=== PATIENT | male | born 1950 | race Caucasian/White ===

== ENCOUNTER 2017-09-28 01:34 | Inpatient (IN) | payer OTHER, MEDICARE ==
[~2017-09-28] VITALS: Ht 180.3 cm; Wt 76.2 kg
[2017-09-28 02:57] LABS: Basophils # (auto) 0.1 uL; Eosinophils # (auto) 0.3 uL; Monocytes # (auto) 0.5 uL
[2017-09-28 02:59] LABS: Basophils % (auto) 0.6 % (0.0-2.0); Eosinophils % (auto) 2.9 % (0.0-7.0); Hematocrit 39.2 % (41.0-53.0); Hemoglobin 12.7 g/dL (13.5-17.5); Lymphocytes # (auto) 2.3 uL; Lymphocytes % (auto) 25.6 % (10.0-50.0); Mean Corpuscular Hemoglobin 25.6 pg (28.0-32.0); Mean Corpuscular Hgb Conc. 32.4 g/dL (32.0-36.0); Mean Corpuscular Volume 78.9 fL (80.0-100.0); Monocytes % (auto) 5.2 % (0.0-12.0); Neutrophils % (auto) 65.7 % (37.0-80.0); Nucleated Red Blood Cells % 0.1 %; Platelet Count (auto) 268 10^3/uL (140-450); Red Blood Cells 4.97 10^6/uL (4.5-5.90); Red Cell Distribution Width 16.5 % (11.8-14.3); White Blood Cell 9.1 10^3/uL (4.4-10.8)
[2017-09-28 03:07] LABS: INR 0.95 (0.9-1.15); Partial Thromboplastin Time 23.4 sec (22.64-33.71); Prothrombin Time 10.4 sec (9.37-12.3)
[2017-09-28 03:10] LABS: Alanine Aminotransferase 15 U/L (16-61); Albumin 2.9 g/dL (3.4-5.0); Anion Gap 10 (5-15); Aspartate Aminotransferase 10 U/L (15-37); Blood Alcohol < 3.0 mg/dL (0-5); Blood Urea Nitrogen 22 mg/dL (7-18); Calcium 8.7 mg/dL (8.5-10.1); Carbon Dioxide 23 mmol/L (21-32); Chloride 111 mmol/L (98-107); GFR African American 96 mL/min; GFR Non-African American 79 mL/min; Glucose 145 mg/dL (74-106); Magnesium 2.3 mg/dL (1.6-2.6); Potassium 3.7 mmol/L (3.5-5.1); Sodium 144 mmol/L (136-145)
[2017-09-28 03:15] LABS: Alkaline Phosphatase 84 U/L (45-117); Bilirubin, Total 0.2 mg/dL (0.2-1.0); Total Protein 6.3 g/dL (6.4-8.2)
[2017-09-28 04:25] LABS: Lactic Acid w/Reflex 2.4 mmol/L (0.4-2.0)
[2017-09-28] MEDS ORDERED: ASPI-378 PO (06:13)
[2017-09-28] MEDS ORDERED: TEMA30CA PO (06:13)
[2017-09-28] MEDS ORDERED: METO25TA5 PO (06:13)
[2017-09-28] MEDS ORDERED: CLOP75TA28 PO (06:13)
[2017-09-28] MEDS ORDERED: GEMF600T3 PO (06:13)
[2017-09-28] MEDS ORDERED: METF-489 PO (06:13)
[2017-09-28] MEDS ORDERED: cefTRIAXone 1GM/10ml IVPUSH 10 ML IV ONE (10:15)
[2017-09-28] MEDS ORDERED: DEXTROSE (50%) 50ML SYRG IV PRN (10:15)
[2017-09-28] MEDS ORDERED: LORazepam 2MG/ML-1ML VIAL IV PRN (10:15)
[2017-09-28] MEDS ORDERED: cloNIDine HCL 0.1 MG TAB PO PRN (10:15)
[2017-09-28] MEDS ORDERED: VANCOMYCIN PER PHARMACY 0 MG IV SCH (10:15)
[2017-09-28] MEDS ORDERED: IOHEXOL 350 MG/ML 100ML IJ ONE (10:21)
[2017-09-28] MEDS ORDERED: MORPHINE SULFATE 8mg/ml INJ SDV IV PRN ×2 (10:30)
[2017-09-28] MEDS ORDERED: ONDANSETRON HCL 4 MG/2 ML VIAL IV PRN (10:30)
[2017-09-28] MEDS ORDERED: ACETAMINOPHEN 325 MG TAB PO PRN (10:30)
[2017-09-28] MEDS ORDERED: TEMAZEPAM 15 MG CAP PO PRN (10:30)
[2017-09-28] MEDS ORDERED: NITROGLYCERIN 0.4 MG SL TAB SL PRN (10:30)
[2017-09-28] MEDS ORDERED: DOCUSATE SOD 100 MG CAP PO PRN (10:30)
[2017-09-28] MEDS ORDERED: ASPirin-EC 81 mg tab PO ONE (10:30)
[2017-09-28] MEDS: InsuLIN REG 1unit/0.01ml Soln (100units/ml) SC SCH ×3 (11:12→21:49)
[2017-09-28] MEDS: ACCU-CHEK COMFORT CURVE STRIP VI SCH ×3 (11:12→21:49)
[2017-09-28] MEDS: SODIUM CHLORIDE 0.9% 1,000 ML IV SCH (11:16)
[2017-09-28] MEDS: VANCOMYCIN 1GM/250ML 250 ML IV SCH (11:17)
[2017-09-28] MEDS: ENOXAPARIN SOD 40 MG/0.4 ML SYRINGE SC SCH (11:17)
[2017-09-28] MEDS: Boost Glucose Control 8 Ounces PO SCH ×2 (11:17→19:21)
[2017-09-28 19:01] LABS: Alcohol, Urine < 3.0 mg/dL (0-5); Amphetamine Screen, Urine NEGATIVE (NEGATIVE); Barbiturate Scree,Urine NEGATIVE (NEGATIVE); Benzodiazephine Screen, Urine NEGATIVE (NEGATIVE); Cannabinoid Screen, Urine NEGATIVE (NEGATIVE); Cocaine Screen, Urine NEGATIVE (NEGATIVE); Opiate Scree,Urine NEGATIVE (NEGATIVE); Phencyclidine Screen, Urine NEGATIVE (NEGATIVE)
[2017-09-28 19:07] LABS: Urine Bacteria NONE SEEN /hpf (None Seen); Urine Blood 1+ /uL (Negative); Urine WBC 2 /hpf (0 - 3)
[2017-09-28 19:16] LABS: Urine Specific Gravity > 1.050 (1.001-1.035)
[2017-09-28 22:00] VITALS: BP_SYST 162; BP_DIAS 83; BP_DIAS 88
[2017-09-28] MEDS: FAMOTIDINE 20 MG TAB PO SCH (23:34)
[2017-09-28] MEDS: ATORVASTATIN 20 MG TAB PO SCH (23:34)
[2017-09-29] MEDS: VANCOMYCIN 1GM/250ML 250 ML IV SCH ×3 (00:57→22:34)
[2017-09-29] MEDS: SODIUM CHLORIDE 0.9% 1,000 ML IV SCH ×2 (02:56→22:35)
[2017-09-29 05:08] VITALS: BP 155/88
[2017-09-29] MEDS: InsuLIN REG 1unit/0.01ml Soln (100units/ml) SC SCH ×4 (06:59→22:00)
[2017-09-29] MEDS: ACCU-CHEK COMFORT CURVE STRIP VI SCH ×4 (07:00→22:35)
[2017-09-29 07:16] LABS: Basophils # (auto) 0.1 uL; Basophils % (auto) 0.9 % (0.0-2.0); Eosinophils # (auto) 0.2 uL; Eosinophils % (auto) 2.5 % (0.0-7.0); Hematocrit 35.8 % (41.0-53.0); Hemoglobin 11.9 g/dL (13.5-17.5); Lymphocytes # (auto) 1.9 uL; Lymphocytes % (auto) 27.7 % (10.0-50.0); Mean Corpuscular Hemoglobin 25.8 pg (28.0-32.0); Mean Corpuscular Hgb Conc. 33.1 g/dL (32.0-36.0); Monocytes # (auto) 0.4 uL; Monocytes % (auto) 6.1 % (0.0-12.0); Neutrophils # (auto) 4.3 uL; Neutrophils % (auto) 62.8 % (37.0-80.0); Nucleated Red Blood Cells % 0.1 %; Platelet Count (auto) 223 10^3/uL (140-450); Red Blood Cells 4.59 10^6/uL (4.5-5.90); Red Cell Distribution Width 16.2 % (11.8-14.3); White Blood Cell 6.8 10^3/uL (4.4-10.8)
[2017-09-29 07:39] LABS: Albumin 2.8 g/dL (3.4-5.0); BUN/Creatinine Ratio 17.9; Bilirubin, Total 0.3 mg/dL (0.2-1.0); Calcium 8.6 mg/dL (8.5-10.1); Potassium 3.7 mmol/L (3.5-5.1); Total Protein 6.1 g/dL (6.4-8.2)
[2017-09-29 09:00] VITALS: BP 159/83
[2017-09-29] MEDS: cefTRIAXone 1GM/10ml IVPUSH 10 ML IV SCH (09:13)
[2017-09-29] MEDS: Boost Glucose Control 8 Ounces PO SCH ×3 (09:14→18:03)
[2017-09-29] MEDS ORDERED: ASPirin-EC 81 mg tab PO SCH (10:00)
[2017-09-29] MEDS: FAMOTIDINE 20 MG TAB PO SCH ×2 (11:15→22:34)
[2017-09-29] MEDS: ENOXAPARIN SOD 40 MG/0.4 ML SYRINGE SC SCH (11:15)
[2017-09-29] MEDS: MULTIPLE VITAMIN TAB PO SCH (11:15)
[2017-09-29 13:00] VITALS: BP 150/93
[2017-09-29] MEDS: APIXABAN 5 MG TAB PO SCH ×2 (15:53→22:00)
[2017-09-29 17:00] VITALS: BP 155/59
[2017-09-29] MEDS: ATORVASTATIN 20 MG TAB PO SCH (22:34)
[2017-09-29] MEDS: HYDROcodone-ACET 5/325MG TAB PO PRN (22:39)
[2017-09-29 23:54] VITALS: BP 147/66
[2017-09-30 05:50] LABS: Basophils # (auto) 0 uL; Basophils % (auto) 0.6 % (0.0-2.0); Eosinophils # (auto) 0.2 uL; Hematocrit 36.3 % (41.0-53.0); Lymphocytes # (auto) 1.9 uL; Monocytes # (auto) 0.4 uL; Neutrophils # (auto) 4.2 uL; White Blood Cell 6.7 10^3/uL (4.4-10.8)
[2017-09-30 05:51] LABS: Eosinophils % (auto) 2.9 % (0.0-7.0); Lymphocytes % (auto) 28.2 % (10.0-50.0); Mean Corpuscular Hemoglobin 25.6 pg (28.0-32.0); Mean Corpuscular Volume 77.4 fL (80.0-100.0); Monocytes % (auto) 6.3 % (0.0-12.0); Platelet Count (auto) 223 10^3/uL (140-450); Red Blood Cells 4.69 10^6/uL (4.5-5.90); Red Cell Distribution Width 15.9 % (11.8-14.3)
[2017-09-30 06:06] VITALS: BP 178/89
[2017-09-30 06:40] LABS: Albumin 2.8 g/dL (3.4-5.0); BUN/Creatinine Ratio 18.8; Bilirubin, Total 0.3 mg/dL (0.2-1.0); Calcium 8.9 mg/dL (8.5-10.1); Potassium 3.7 mmol/L (3.5-5.1); Total Protein 6.2 g/dL (6.4-8.2)
[2017-09-30] MEDS: InsuLIN REG 1unit/0.01ml Soln (100units/ml) SC SCH ×4 (06:54→22:15)
[2017-09-30] MEDS: ACCU-CHEK COMFORT CURVE STRIP VI SCH ×4 (06:55→22:00)
[2017-09-30 09:00] VITALS: BP 158/85
[2017-09-30] MEDS: Boost Glucose Control 8 Ounces PO SCH ×3 (09:35→17:40)
[2017-09-30] MEDS: APIXABAN 5 MG TAB PO SCH ×2 (09:36→22:14)
[2017-09-30] MEDS: cefTRIAXone 1GM/10ml IVPUSH 10 ML IV SCH (09:36)
[2017-09-30] MEDS: MULTIPLE VITAMIN TAB PO SCH (09:36)
[2017-09-30] MEDS: FAMOTIDINE 20 MG TAB PO SCH ×2 (09:37→22:14)
[2017-09-30] MEDS: VANCOMYCIN 1GM/250ML 250 ML IV SCH ×2 (11:44→23:00)
[2017-09-30] MEDS: SODIUM CHLORIDE 0.9% 1,000 ML IV SCH (12:10)
[2017-09-30 13:00] VITALS: BP 161/87
[2017-09-30 17:00] VITALS: BP 170/98
[2017-09-30] MEDS ORDERED: LORazepam 2MG/ML-1ML VIAL IV PRN (20:30)
[2017-09-30 22:00] VITALS: BP 152/83
[2017-09-30] MEDS: ATORVASTATIN 20 MG TAB PO SCH (22:14)
[2017-10-01] VITALS (7 sets, daily range): BP systolic 142–159; BP diastolic 69–96
[2017-10-01] MEDS: SODIUM CHLORIDE 0.9% 1,000 ML IV SCH ×2 (05:20→22:01)
[2017-10-01 06:05] LABS: Basophils # (auto) 0.1 uL; Basophils % (auto) 0.9 % (0.0-2.0); Eosinophils # (auto) 0.3 uL; Eosinophils % (auto) 3.9 % (0.0-7.0); Hematocrit 38.2 % (41.0-53.0); Hemoglobin 12.5 g/dL (13.5-17.5); Lymphocytes # (auto) 1.5 uL; Lymphocytes % (auto) 23.1 % (10.0-50.0); Mean Corpuscular Hemoglobin 25.6 pg (28.0-32.0); Mean Corpuscular Hgb Conc. 32.7 g/dL (32.0-36.0); Mean Corpuscular Volume 78.3 fL (80.0-100.0); Monocytes # (auto) 0.3 uL; Monocytes % (auto) 5.3 % (0.0-12.0); Neutrophils # (auto) 4.3 uL; Neutrophils % (auto) 66.8 % (37.0-80.0); Nucleated Red Blood Cells % 0.1 %; Platelet Count (auto) 250 10^3/uL (140-450); Red Blood Cells 4.88 10^6/uL (4.5-5.90); Red Cell Distribution Width 16.2 % (11.8-14.3); White Blood Cell 6.5 10^3/uL (4.4-10.8)
[2017-10-01] MEDS: InsuLIN REG 1unit/0.01ml Soln (100units/ml) SC SCH ×4 (06:32→22:00)
[2017-10-01] MEDS: ACCU-CHEK COMFORT CURVE STRIP VI SCH ×4 (06:33→22:01)
[2017-10-01 06:41] LABS: BUN/Creatinine Ratio 19.8; Calcium 9.1 mg/dL (8.5-10.1); Potassium 3.8 mmol/L (3.5-5.1)
[2017-10-01] MEDS: Boost Glucose Control 8 Ounces PO SCH ×3 (08:53→17:40)
[2017-10-01] MEDS: FAMOTIDINE 20 MG TAB PO SCH ×2 (10:01→22:00)
[2017-10-01] MEDS: APIXABAN 5 MG TAB PO SCH ×2 (10:01→22:01)
[2017-10-01] MEDS: MULTIPLE VITAMIN TAB PO SCH (10:01)
[2017-10-01] MEDS: cefTRIAXone 1GM/10ml IVPUSH 10 ML IV SCH (10:02)
[2017-10-01 11:56] LABS: Folate (Folic Acid) 15.37 ng/mL (5.38-24)
[2017-10-01] MEDS: ATORVASTATIN 20 MG TAB PO SCH (22:01)
[2017-10-01] MEDS: HYDROcodone-ACET 5/325MG TAB PO PRN (22:03)
[2017-10-02 05:30] VITALS: BP 177/77
[2017-10-02] MEDS: HYDROcodone-ACET 5/325MG TAB PO PRN (05:39)
[2017-10-02 06:07] LABS: Eosinophils # (auto) 0.3 uL; Lymphocytes # (auto) 1.7 uL; Neutrophils # (auto) 3.2 uL; White Blood Cell 5.6 10^3/uL (4.4-10.8)
[2017-10-02 06:10] LABS: Basophils # (auto) 0.1 uL; Basophils % (auto) 1.2 % (0.0-2.0); Hematocrit 39.1 % (41.0-53.0); Hemoglobin 12.8 g/dL (13.5-17.5); Lymphocytes % (auto) 30.7 % (10.0-50.0); Mean Corpuscular Hemoglobin 25.6 pg (28.0-32.0); Mean Corpuscular Hgb Conc. 32.7 g/dL (32.0-36.0); Mean Corpuscular Volume 78.3 fL (80.0-100.0); Monocytes # (auto) 0.3 uL; Monocytes % (auto) 6.2 % (0.0-12.0); Neutrophils % (auto) 56.9 % (37.0-80.0); Nucleated Red Blood Cells % 0.2 %; Platelet Count (auto) 263 10^3/uL (140-450); Red Cell Distribution Width 16.3 % (11.8-14.3)
[2017-10-02 06:25] LABS: Potassium 3.9 mmol/L (3.5-5.1)
[2017-10-02 06:34] LABS: BUN/Creatinine Ratio 19.8; Bilirubin, Total 0.4 mg/dL (0.2-1.0); Calcium 9.4 mg/dL (8.5-10.1); Total Protein 6.4 g/dL (6.4-8.2)
[2017-10-02] MEDS: ACCU-CHEK COMFORT CURVE STRIP VI SCH ×2 (06:52→11:30)
[2017-10-02] MEDS: InsuLIN REG 1unit/0.01ml Soln (100units/ml) SC SCH ×2 (06:52→11:30)
[2017-10-02 08:00] VITALS: BP 109/61
[2017-10-02] MEDS: Boost Glucose Control 8 Ounces PO SCH ×2 (08:12→12:40)
[2017-10-02 09:00] VITALS: BP 109/61
[2017-10-02] MEDS: APIXABAN 5 MG TAB PO SCH (09:21)
[2017-10-02] MEDS: FAMOTIDINE 20 MG TAB PO SCH (09:21)
[2017-10-02] MEDS: MULTIPLE VITAMIN TAB PO SCH (09:21)
[2017-10-02 11:35] VITALS: BP 109/61
[2017-10-06] MEDS ORDERED: APIXABAN 5 MG TAB PO SCH (22:00)
== END 2017-10-02 13:00 | disposition home or self-care (01) | DRG 871 ==
LOC: ER 01:34 → WEST WING 01:35 → TELE-WESTW 09-29 23:12
PROVIDERS: ADMIT Internal Medicine; ATTEND Internal Medicine
DX: A41.9 Sepsis, unspecified organism (principal); G92 Toxic encephalopathy; E44.0 Moderate protein-calorie malnutrition; E11.21 Type 2 diabetes mellitus with diabetic nephropathy; E11.52 Type 2 diabetes mellitus with diabetic peripheral angiopathy with gangrene; E11.42 Type 2 diabetes mellitus with diabetic polyneuropathy; F17.200 Nicotine dependence, unspecified, uncomplicated; D50.9 Iron deficiency anemia, unspecified; N39.0 Urinary tract infection, site not specified; D63.8 Anemia in other chronic diseases classified elsewhere; E86.0 Dehydration; I10 Essential (primary) hypertension; G40.909 Epilepsy, unspecified, not intractable, without status epilepticus; F03.90 Unspecified dementia, unspecified severity, without behavioral disturbance, psychotic disturbance, mood disturbance, and anxiety; N18.2 Chronic kidney disease, stage 2 (mild); E11.22 Type 2 diabetes mellitus with diabetic chronic kidney disease; I51.7 Cardiomegaly; Z79.01 Long term (current) use of anticoagulants; Z89.432 Acquired absence of left foot
CPT/HCPCS: 36415; 70450; 70551; 71045; 71275; 80048; 80053; 80202; 80307; 80320; 81001; 82607; 82746; 82962; 83036; 83605; 83735; 83880; 84443; 84484; 85025; 85379; 85610; 85730; 87040; 87086; 93005; 93306; 93886; 93970; 94761; 95819; 96372; 96374; 97116; 97163; J1815

== ENCOUNTER 2019-07-31 09:45 | Inpatient (IN) | payer MEDICARE, OTHER ==
[~2019-07-31] VITALS: Ht 180.3 cm; Wt 73.0 kg
[~2019-07-31 09:45] MED LIST: ASPI-378 PO; CLOP75TA28 PO; GEMF600T7 PO; METF-489 PO; METO25TA5 PO; TEMA30CA PO
[2019-07-31] MEDS ORDERED: PIPERACILLIN-TAZOB 3.375GM 100 ML IV ONE (10:00)
[2019-07-31 10:21] LABS: Hemoglobin 15.1 g/dL (13.5-17.5); White Blood Cell 16.2 10^3/uL (4.4-10.8)
[2019-07-31 10:23] LABS: Hematocrit 46.8 % (41.0-53.0); Mean Corpuscular Hemoglobin 26.7 pg (28.0-32.0); Mean Corpuscular Hgb Conc. 32.3 g/dL (32.0-36.0); Mean Corpuscular Volume 82.6 fL (80.0-100.0); Platelet Count (auto) 357 10^3/uL (140-450); Red Blood Cells 5.67 10^6/uL (4.5-5.90); Red Cell Distribution Width 16.8 % (11.8-14.3)
[2019-07-31 10:28] LABS: Band Neutrophils % (manual) 0; Basophils % (manual) 0 (0.0-2.0); Blast Cells 0; Eosinophils % (manual) 0 (0-7); Metamyelocytes % 0; Myelocytes % 0; Promyelocytes % 0; Reactive Lymphocytes 0
[2019-07-31 10:36] LABS: INR 1.06 (0.9-1.15); Partial Thromboplastin Time 20.7 sec (23.64-32.05)
[2019-07-31 10:41] LABS: Albumin 3.4 g/dL (3.4-5.0); Calcium 9.6 mg/dL (8.5-10.1)
[2019-07-31 10:46] LABS: BUN/Creatinine Ratio 27.1; Bilirubin, Total 0.5 mg/dL (0.2-1.0); Total Protein 7.5 g/dL (6.4-8.2)
[2019-07-31 11:12] LABS: Lactic Acid w/Reflex 3.3 mmol/L (0.4-2.0)
[2019-07-31] MEDS ORDERED: AZITHROMYCIN 500MG/ 250ML 250 ML IV ONE (11:30)
[2019-07-31 11:33] LABS: Lymphocytes % (manual) 15 (10.0-50.0); Monocytes % (manual) 7 (0-12)
[2019-07-31] MEDS ORDERED: DEXTROSE (50%) 50ML SYRG IV PRN (13:00)
[2019-07-31] MEDS ORDERED: NITROGLYCERIN 0.4 MG SL TAB SL PRN (13:00)
[2019-07-31] MEDS ORDERED: MORPHINE SULF INJ 2 MG/ML SYRINGE 1ML IV PRN ×2 (13:00)
[2019-07-31] MEDS ORDERED: ACETAMINOPHEN 500 MG TAB PO PRN (13:00)
[2019-07-31] MEDS ORDERED: ONDANSETRON HCL 4 MG/2 ML VIAL IV PRN (13:00)
[2019-07-31] MEDS ORDERED: SODIUM CHLORIDE 0.9% 2,000 ML IV ONE (13:00)
[2019-07-31] MEDS ORDERED: SODIUM CHLORIDE 0.9% 1,000 ML IV SCH (13:00)
[2019-07-31] MEDS: METOPROLOL TARTRATE 25 MG TAB PO SCH ×2 (14:41→22:37)
[2019-07-31] MEDS: cefTRIAXone 1GM/50ML D5W 50 ML IV SCH (15:18)
[2019-07-31] MEDS: SODIUM CHLORIDE 0.9% 1,000 ML IV SCH (15:22)
[2019-07-31] MEDS: CLINDAMYCIN 300MG IV 50 ML IV SCH ×2 (16:57→22:36)
[2019-07-31] MEDS: ACCU-CHEK COMFORT CURVE STRIP VI SCH ×2 (17:47→22:00)
[2019-07-31] MEDS: InsuLIN REG 1unit/0.01ml Soln (100units/ml) SC SCH ×2 (17:58→22:00)
[2019-07-31] MEDS: ALBUTEROL SULF 2.5 MG/0.5ML(0.5%) NEB SOLN NEB SCH (19:50)
[2019-07-31] MEDS: IPRATROPIUM BROM 0.5 MG/2.5ML INH SOL NEB SCH (19:51)
[2019-07-31 19:56] VITALS: BP 129/78
[2019-07-31 20:00] VITALS: BP 157/93
[2019-07-31 22:00] VITALS: BP 157/93
[2019-07-31] MEDS: TERAZOSIN HCL 1 MG CAP PO SCH (22:36)
[2019-08-01] LABS: Urine Amorphous Crystal FEW /hpf (None Seen); Urine Bacteria NONE SEEN /hpf (None Seen); Urine Blood Negative /uL (Negative); Urine WBC 3 /hpf (0 - 3)
[2019-08-01] MEDS ORDERED: TEMAZEPAM 15 MG CAP PO ONE (00:45)
[2019-08-01] MEDS: SODIUM CHLORIDE 0.9% 1,000 ML IV SCH (00:56)
[2019-08-01 05:00] VITALS: BP 145/77
[2019-08-01] MEDS: CLINDAMYCIN 300MG IV 50 ML IV SCH (05:28)
[2019-08-01 06:02] LABS: Basophils # (auto) 0.1 uL; Basophils % (auto) 0.9 % (0.0-2.0); Eosinophils # (auto) 0 uL; Eosinophils % (auto) 0.3 % (0.0-7.0); Hematocrit 40.7 % (41.0-53.0); Hemoglobin 13.4 g/dL (13.5-17.5); Lymphocytes # (auto) 1.7 uL; Lymphocytes % (auto) 15.2 % (10.0-50.0); Mean Corpuscular Hemoglobin 27.3 pg (28.0-32.0); Mean Corpuscular Volume 82.8 fL (80.0-100.0); Monocytes # (auto) 0.5 uL; Monocytes % (auto) 4.9 % (0.0-12.0); Neutrophils # (auto) 8.6 uL; Neutrophils % (auto) 78.7 % (37.0-80.0); Platelet Count (auto) 225 10^3/uL (140-450); Red Blood Cells 4.92 10^6/uL (4.5-5.90); Red Cell Distribution Width 16.4 % (11.8-14.3); White Blood Cell 10.9 10^3/uL (4.4-10.8)
[2019-08-01] MEDS: IPRATROPIUM BROM 0.5 MG/2.5ML INH SOL NEB SCH ×3 (06:10→19:28)
[2019-08-01] MEDS: ALBUTEROL SULF 2.5 MG/0.5ML(0.5%) NEB SOLN NEB SCH ×3 (06:10→19:28)
[2019-08-01] MEDS: ACCU-CHEK COMFORT CURVE STRIP VI SCH ×4 (06:18→22:07)
[2019-08-01] MEDS: InsuLIN REG 1unit/0.01ml Soln (100units/ml) SC SCH ×4 (06:19→22:08)
[2019-08-01 06:22] LABS: BUN/Creatinine Ratio 34.7; Calcium 8.3 mg/dL (8.5-10.1); Potassium 4.2 mmol/L (3.5-5.1)
[2019-08-01 08:00] VITALS: BP 136/77
[2019-08-01 09:00] VITALS: BP 136/77
[2019-08-01] MEDS: cefTRIAXone 1GM/50ML D5W 50 ML IV SCH (09:44)
[2019-08-01] MEDS: METOPROLOL TARTRATE 25 MG TAB PO SCH ×2 (09:49→22:06)
[2019-08-01] MEDS: FAMOTIDINE 20 MG TAB PO SCH (09:49)
[2019-08-01] MEDS ORDERED: SOD CHL 0.45% 1,000 ML IV SCH (10:00)
[2019-08-01] MEDS: levoFLOXacin 750MG 150 ML IV SCH (12:36)
[2019-08-01] MEDS: D5W/SOD CHL 0.45% 1,000 ML IV SCH ×2 (12:39→23:30)
[2019-08-01] MEDS: ENOXAPARIN SOD 40 MG/0.4 ML SYRINGE SC SCH (12:53)
[2019-08-01 13:00] VITALS: BP 147/86
[2019-08-01 13:29] LABS: Eosinophils # (auto) 0.1 uL; Lymphocytes # (auto) 1.2 uL; Mean Corpuscular Hgb Conc. 31.8 g/dL (32.0-36.0); Neutrophils # (auto) 9.3 uL
[2019-08-01 13:32] LABS: Basophils # (auto) 0.1 uL; Basophils % (auto) 0.8 % (0.0-2.0); Eosinophils % (auto) 0.6 % (0.0-7.0); Hematocrit 40.5 % (41.0-53.0); Hemoglobin 12.9 g/dL (13.5-17.5); Lymphocytes % (auto) 10.7 % (10.0-50.0); Mean Corpuscular Hemoglobin 26.7 pg (28.0-32.0); Mean Corpuscular Volume 84.1 fL (80.0-100.0); Monocytes # (auto) 0.3 uL; Neutrophils % (auto) 84.9 % (37.0-80.0); Platelet Count (auto) 262 10^3/uL (140-450); Red Blood Cells 4.82 10^6/uL (4.5-5.90); Red Cell Distribution Width 16.1 % (11.8-14.3); White Blood Cell 10.9 10^3/uL (4.4-10.8)
[2019-08-01 14:05] LABS: Albumin 2.7 g/dL (3.4-5.0); Calcium 8.2 mg/dL (8.5-10.1); Potassium 3.7 mmol/L (3.5-5.1)
[2019-08-01 14:08] LABS: BUN/Creatinine Ratio 32.7
[2019-08-01 14:10] LABS: Bilirubin, Total 0.3 mg/dL (0.2-1.0); Total Protein 6.3 g/dL (6.4-8.2)
[2019-08-01 16:39] VITALS: BP 150/83
[2019-08-01 22:00] VITALS: BP 170/95
[2019-08-01] MEDS: TERAZOSIN HCL 1 MG CAP PO SCH (22:07)
[2019-08-01] MEDS ORDERED: TEMAZEPAM 15 MG CAP PO PRN (23:30)
[2019-08-02 05:00] VITALS: BP 202/96
[2019-08-02] MEDS ORDERED: cloNIDine HCL 0.1 MG TAB PO ONE ×2 (05:15→12:00)
[2019-08-02 06:09] LABS: Hematocrit 41.2 % (41.0-53.0); Hemoglobin 13.4 g/dL (13.5-17.5); Mean Corpuscular Hgb Conc. 32.6 g/dL (32.0-36.0); Mean Corpuscular Volume 82.7 fL (80.0-100.0); Platelet Count (auto) 218 10^3/uL (140-450); Red Blood Cells 4.99 10^6/uL (4.5-5.90); Red Cell Distribution Width 16.3 % (11.8-14.3); White Blood Cell 10.2 10^3/uL (4.4-10.8)
[2019-08-02 06:17] LABS: Band Neutrophils % (manual) 0; Blast Cells 0; Eosinophils % (manual) 0 (0-7); Metamyelocytes % 0; Myelocytes % 0; Promyelocytes % 0; Reactive Lymphocytes 0
[2019-08-02] MEDS: ALBUTEROL SULF 2.5 MG/0.5ML(0.5%) NEB SOLN NEB SCH ×3 (06:23→18:43)
[2019-08-02] MEDS: IPRATROPIUM BROM 0.5 MG/2.5ML INH SOL NEB SCH ×3 (06:23→18:43)
[2019-08-02 06:28] LABS: Albumin 2.7 g/dL (3.4-5.0); Calcium 8.4 mg/dL (8.5-10.1); Magnesium 2.2 mg/dL (1.6-2.6); Potassium 3.3 mmol/L (3.5-5.1)
[2019-08-02 06:33] LABS: BUN/Creatinine Ratio 25.2; Bilirubin, Total 0.5 mg/dL (0.2-1.0); Total Protein 6.3 g/dL (6.4-8.2)
[2019-08-02] MEDS: InsuLIN REG 1unit/0.01ml Soln (100units/ml) SC SCH ×4 (06:51→22:38)
[2019-08-02] MEDS: ACCU-CHEK COMFORT CURVE STRIP VI SCH ×4 (06:51→22:39)
[2019-08-02 07:08] VITALS: BP 162/116
[2019-08-02 07:16] LABS: Basophils % (manual) 4 (0.0-2.0); Lymphocytes % (manual) 10 (10.0-50.0); Monocytes % (manual) 4 (0-12)
[2019-08-02] MEDS: D5W/SOD CHL 0.45% 1,000 ML IV SCH (08:00)
[2019-08-02 09:00] VITALS: BP 203/125
[2019-08-02] MEDS ORDERED: cefTRIAXone 1GM/50ML D5W 50 ML IV SCH (09:00)
[2019-08-02] MEDS: ENOXAPARIN SOD 40 MG/0.4 ML SYRINGE SC SCH (09:21)
[2019-08-02] MEDS: FAMOTIDINE 20 MG TAB PO SCH (09:21)
[2019-08-02] MEDS: levoFLOXacin 750MG 150 ML IV SCH (09:21)
[2019-08-02] MEDS: METOPROLOL TARTRATE 25 MG TAB PO SCH ×2 (09:22→22:38)
[2019-08-02] MEDS ORDERED: cloNIDine HCL 0.1 MG TAB ONE (11:54)
[2019-08-02] MEDS ORDERED: amLODIPine BESYLATE 5 MG TAB PO ONE (12:45)
[2019-08-02] MEDS ORDERED: POTASSIUM EFFERVESENT TAB 25 MEQ PO ONE (12:45)
[2019-08-02] MEDS ORDERED: ASPirin 81 mg TAB PO ONE (12:45)
[2019-08-02 13:00] VITALS: BP 179/113
[2019-08-02] MEDS: D5W 5% 1,000 ML IV SCH ×2 (14:24→22:40)
[2019-08-02 17:00] VITALS: BP 157/104
[2019-08-02 22:00] VITALS: BP 142/81
[2019-08-02] MEDS ORDERED: levETIRAcetam 500 MG TAB PO SCH (22:00)
[2019-08-02] MEDS: TERAZOSIN HCL 1 MG CAP PO SCH (22:37)
[2019-08-02] MEDS: ATORVASTATIN 20 MG TAB PO SCH (22:37)
[2019-08-02] MEDS ORDERED: levETIRAcetam 500 MG/5ML INJ IV ONE (23:14)
[2019-08-03] VITALS (7 sets, daily range): BP systolic 122–165; BP diastolic 68–95
[2019-08-03] MEDS: IPRATROPIUM BROM 0.5 MG/2.5ML INH SOL NEB SCH ×3 (05:56→19:08)
[2019-08-03] MEDS: ALBUTEROL SULF 2.5 MG/0.5ML(0.5%) NEB SOLN NEB SCH ×3 (05:56→19:07)
[2019-08-03] MEDS: InsuLIN REG 1unit/0.01ml Soln (100units/ml) SC SCH ×4 (06:15→22:00)
[2019-08-03] MEDS: ACCU-CHEK COMFORT CURVE STRIP VI SCH ×4 (06:15→23:39)
[2019-08-03] MEDS: levoFLOXacin 750MG 150 ML IV SCH (09:57)
[2019-08-03] MEDS: amLODIPine BESYLATE 5 MG TAB PO SCH (09:58)
[2019-08-03] MEDS: LOSARTAN POTASSIUM 25 MG TAB PO SCH (09:58)
[2019-08-03] MEDS: FAMOTIDINE 20 MG TAB PO SCH (09:58)
[2019-08-03] MEDS: METOPROLOL TARTRATE 25 MG TAB PO SCH ×2 (09:59→23:38)
[2019-08-03] MEDS: ENOXAPARIN SOD 40 MG/0.4 ML SYRINGE SC SCH (09:59)
[2019-08-03] MEDS: ASPirin 81 mg TAB PO SCH (09:59)
[2019-08-03] MEDS ORDERED: AZITHROMYCIN 500MG/ 250ML 250 ML IV ONE (10:30)
[2019-08-03 11:04] LABS: Basophils # (auto) 0 uL; Basophils % (auto) 0.5 % (0.0-2.0); Eosinophils # (auto) 0.1 uL; Eosinophils % (auto) 1.9 % (0.0-7.0); Hematocrit 35.4 % (41.0-53.0); Hemoglobin 11.9 g/dL (13.5-17.5); Lymphocytes # (auto) 0.9 uL; Mean Corpuscular Hemoglobin 27.5 pg (28.0-32.0); Mean Corpuscular Hgb Conc. 33.5 g/dL (32.0-36.0); Mean Corpuscular Volume 82.1 fL (80.0-100.0); Monocytes # (auto) 0.3 uL; Monocytes % (auto) 4.5 % (0.0-12.0); Neutrophils # (auto) 5.6 uL; Neutrophils % (auto) 80.1 % (37.0-80.0); Platelet Count (auto) 181 10^3/uL (140-450); Red Blood Cells 4.32 10^6/uL (4.5-5.90); Red Cell Distribution Width 15.7 % (11.8-14.3)
[2019-08-03 11:21] LABS: Calcium 8.2 mg/dL (8.5-10.1); Potassium 3.2 mmol/L (3.5-5.1)
[2019-08-03] MEDS: D5W 5% 1,000 ML IV SCH (11:56)
[2019-08-03] MEDS ORDERED: POTASSIUM EFFERVESENT TAB 25 MEQ PO ONE (17:45)
[2019-08-03] MEDS: ATORVASTATIN 20 MG TAB PO SCH (23:38)
[2019-08-03] MEDS: TERAZOSIN HCL 1 MG CAP PO SCH (23:39)
[2019-08-04] VITALS (7 sets, daily range): BP systolic 140–165; BP diastolic 73–92
[2019-08-04] MEDS: InsuLIN REG 1unit/0.01ml Soln (100units/ml) SC SCH ×4 (07:00→23:16)
[2019-08-04] MEDS: ACCU-CHEK COMFORT CURVE STRIP VI SCH ×4 (07:09→21:57)
[2019-08-04] MEDS: ALBUTEROL SULF 2.5 MG/0.5ML(0.5%) NEB SOLN NEB SCH ×3 (07:35→19:19)
[2019-08-04] MEDS: IPRATROPIUM BROM 0.5 MG/2.5ML INH SOL NEB SCH ×3 (07:35→19:19)
[2019-08-04] MEDS: cefTRIAXone 1GM/50ML D5W 50 ML IV SCH (08:37)
[2019-08-04] MEDS: ASPirin 81 mg TAB PO SCH (09:26)
[2019-08-04] MEDS: LOSARTAN POTASSIUM 25 MG TAB PO SCH (09:27)
[2019-08-04] MEDS: amLODIPine BESYLATE 5 MG TAB PO SCH (09:28)
[2019-08-04] MEDS: METOPROLOL TARTRATE 25 MG TAB PO SCH ×2 (09:28→11:39)
[2019-08-04] MEDS: FAMOTIDINE 20 MG TAB PO SCH (09:29)
[2019-08-04] MEDS: ENOXAPARIN SOD 40 MG/0.4 ML SYRINGE SC SCH (09:29)
[2019-08-04] MEDS ORDERED: AZITHROMYCIN 500MG/ 250ML 250 ML IV SCH (10:00)
[2019-08-04] MEDS ORDERED: METOPROLOL TARTRATE 25 MG TAB PO ONE (23:00)
[2019-08-04] MEDS: ATORVASTATIN 20 MG TAB PO SCH (23:15)
[2019-08-04] MEDS: TERAZOSIN HCL 1 MG CAP PO SCH (23:16)
[2019-08-05] VITALS (7 sets, daily range): BP systolic 135–164; BP diastolic 80–95
[2019-08-05] MEDS: ALBUTEROL SULF 2.5 MG/0.5ML(0.5%) NEB SOLN NEB SCH ×3 (05:49→19:07)
[2019-08-05] MEDS: IPRATROPIUM BROM 0.5 MG/2.5ML INH SOL NEB SCH ×3 (05:49→19:07)
[2019-08-05] MEDS: InsuLIN REG 1unit/0.01ml Soln (100units/ml) SC SCH ×4 (07:00→22:00)
[2019-08-05] MEDS: ACCU-CHEK COMFORT CURVE STRIP VI SCH ×4 (07:19→22:34)
[2019-08-05] MEDS: cefTRIAXone 1GM/50ML D5W 50 ML IV SCH (08:28)
[2019-08-05 09:34] LABS: Basophils # (auto) 0.1 uL; Basophils % (auto) 0.9 % (0.0-2.0); Eosinophils # (auto) 0.1 uL; Hematocrit 35.3 % (41.0-53.0); Mean Corpuscular Hemoglobin 26.6 pg (28.0-32.0); Monocytes # (auto) 0.3 uL
[2019-08-05 09:36] LABS: Hemoglobin 11.7 g/dL (13.5-17.5); Lymphocytes % (auto) 16.7 % (10.0-50.0); Mean Corpuscular Hgb Conc. 33.1 g/dL (32.0-36.0); Mean Corpuscular Volume 80.5 fL (80.0-100.0); Monocytes % (auto) 4.6 % (0.0-12.0); Neutrophils # (auto) 4.4 uL; Neutrophils % (auto) 75.8 % (37.0-80.0); Platelet Count (auto) 200 10^3/uL (140-450); Red Blood Cells 4.38 10^6/uL (4.5-5.90); Red Cell Distribution Width 16.1 % (11.8-14.3); White Blood Cell 5.8 10^3/uL (4.4-10.8)
[2019-08-05 09:50] LABS: Albumin 2.2 g/dL (3.4-5.0); Calcium 8.3 mg/dL (8.5-10.1); Magnesium 2.5 mg/dL (1.6-2.6); Potassium 3.4 mmol/L (3.5-5.1)
[2019-08-05 09:53] LABS: BUN/Creatinine Ratio 16.7; Bilirubin, Total 0.2 mg/dL (0.2-1.0); Total Protein 5.7 g/dL (6.4-8.2)
[2019-08-05] MEDS ORDERED: LOSARTAN POTASSIUM 25 MG TAB PO SCH (10:00)
[2019-08-05 10:09] LABS: Folate (Folic Acid) 12.86 ng/mL (5.38-24)
[2019-08-05] MEDS: ENOXAPARIN SOD 40 MG/0.4 ML SYRINGE SC SCH (10:15)
[2019-08-05] MEDS: LOSARTAN POTASSIUM 50 MG TAB PO SCH (10:17)
[2019-08-05] MEDS: amLODIPine BESYLATE 5 MG TAB PO SCH (10:18)
[2019-08-05] MEDS: FAMOTIDINE 20 MG TAB PO SCH (10:19)
[2019-08-05] MEDS: METOPROLOL TARTRATE 25 MG TAB PO SCH ×2 (10:20→22:28)
[2019-08-05] MEDS: ASPirin 81 mg TAB PO SCH (10:20)
[2019-08-05] MEDS ORDERED: CYANOCOBALAMIN (B-12) 1000 MCG/1 ML VIAL SUBCUT ONE (10:45)
[2019-08-05] MEDS ORDERED: POTASSIUM CHLORIDE 20 MEQ, LIDOCAINE 1% (LOCAL ANESTH.) 2 ML in SODIUM CHL 0.9% 100 ML IV ONE (10:45)
[2019-08-05] MEDS ORDERED: ALBUTEROL SULF 2.5 MG/0.5ML(0.5%) NEB SOLN ONE (11:00)
[2019-08-05] MEDS ORDERED: IPRATROPIUM BROM 0.5 MG/2.5ML INH SOL ONE (11:01)
[2019-08-05] MEDS: levETIRAcetam 500 MG TAB PO SCH (22:27)
[2019-08-05] MEDS: TERAZOSIN HCL 1 MG CAP PO SCH (22:27)
[2019-08-05] MEDS: ATORVASTATIN 20 MG TAB PO SCH (22:27)
[2019-08-06 05:00] VITALS: BP 144/78
[2019-08-06] MEDS: IPRATROPIUM BROM 0.5 MG/2.5ML INH SOL NEB SCH ×2 (06:02→12:17)
[2019-08-06] MEDS: ALBUTEROL SULF 2.5 MG/0.5ML(0.5%) NEB SOLN NEB SCH ×2 (06:02→12:17)
[2019-08-06] MEDS: InsuLIN REG 1unit/0.01ml Soln (100units/ml) SC SCH ×2 (06:03→11:30)
[2019-08-06] MEDS: ACCU-CHEK COMFORT CURVE STRIP VI SCH ×2 (06:04→11:54)
[2019-08-06 08:13] VITALS: BP 151/72
[2019-08-06] MEDS: cefTRIAXone 1GM/50ML D5W 50 ML IV SCH (08:40)
[2019-08-06 09:00] VITALS: BP 151/72
[2019-08-06] MEDS ORDERED: CYANOCOBALAMIN 500 MCG TAB PO SCH (10:00)
[2019-08-06] MEDS: ASPirin 81 mg TAB PO SCH (10:06)
[2019-08-06] MEDS: LOSARTAN POTASSIUM 50 MG TAB PO SCH (10:07)
[2019-08-06] MEDS: levETIRAcetam 500 MG TAB PO SCH (10:08)
[2019-08-06] MEDS: FAMOTIDINE 20 MG TAB PO SCH (10:10)
[2019-08-06] MEDS: amLODIPine BESYLATE 5 MG TAB PO SCH (10:10)
[2019-08-06] MEDS: ENOXAPARIN SOD 40 MG/0.4 ML SYRINGE SC SCH (10:11)
[2019-08-06 13:00] VITALS: BP 130/76
[2019-08-06 14:33] VITALS: BP 130/76
[2019-08-06] MEDS ORDERED: METOPROLOL TARTRATE 50 MG TAB PO SCH (22:00)
== END 2019-08-06 18:00 | disposition hospice, home (50) | DRG 871 ==
LOC: ER 09:45 → EDBD 09:45 → TELE 09:46 → TELE-WESTW 18:40
PROVIDERS: ADMIT Nurse Practitioner Acute Care; ATTEND Internal Medicine
DX: A41.9 Sepsis, unspecified organism (principal); N17.0 Acute kidney failure with tubular necrosis; J18.9 Pneumonia, unspecified organism; E87.0 Hyperosmolality and hypernatremia; F03.91 Unspecified dementia, unspecified severity, with behavioral disturbance; I13.0 Hypertensive heart and chronic kidney disease with heart failure and stage 1 through stage 4 chronic kidney disease, or unspecified chronic kidney disease; G93.40 Encephalopathy, unspecified; N18.3 Chronic kidney disease, stage 3 (moderate); N40.0 Benign prostatic hyperplasia without lower urinary tract symptoms; E78.5 Hyperlipidemia, unspecified; E86.0 Dehydration; E87.6 Hypokalemia; F32.9 Major depressive disorder, single episode, unspecified; I50.9 Heart failure, unspecified; R65.20 Severe sepsis without septic shock; E11.51 Type 2 diabetes mellitus with diabetic peripheral angiopathy without gangrene; E11.42 Type 2 diabetes mellitus with diabetic polyneuropathy; F43.10 Post-traumatic stress disorder, unspecified; G40.909 Epilepsy, unspecified, not intractable, without status epilepticus; Z74.01 Bed confinement status; Z79.02 Long term (current) use of antithrombotics/antiplatelets; Z79.84 Long term (current) use of oral hypoglycemic drugs; Z79.82 Long term (current) use of aspirin; Z79.899 Other long term (current) drug therapy; Z82.49 Family history of ischemic heart disease and other diseases of the circulatory system; Z87.891 Personal history of nicotine dependence; Z86.718 Personal history of other venous thrombosis and embolism
CPT/HCPCS: 36415; 70450; 71045; 78582; 80048; 80053; 81001; 82607; 82746; 82962; 83036; 83605; 83735; 83880; 84439; 84443; 84484; 85007; 85025; 85027; 85379; 85610; 85730; 87040; 87086; 87493; 87804; 92610; 93306; 93970; 94640; 95819; G0378; J0696; J1815; J1956; J2001; J2543; J3490; J7060